=== PATIENT | male | born 2000 | race Two or more races ===

== ENCOUNTER 2024-07-15 09:17 | Outpatient (CLI) | payer OTHER | END 2024-07-15 09:22 | disposition home or self-care (01) | LOC: SONOGRAMA 09:17 | PROVIDERS: ATTEND Pathology Anatomic Pathology & Clinical Pathology | DX: R59.0 Localized enlarged lymph nodes (principal); C83.01 Small cell B-cell lymphoma, lymph nodes of head, face, and neck ==